=== PATIENT | female | born 1985 | race Caucasian/White ===

== ENCOUNTER 2017-01-19 05:30 | Emergency (ER) | payer OTHER ==
[~2017-01-19] VITALS: Ht 165.1 cm; Wt 87.1 kg
[~2017-01-19 05:30] MED LIST: CINNAMON BARK500 MG PO; Diabeta,Micronase PO; ENDOCET 5-3251 EACH PO; Flintstones PO; HUMALOG100 UNIT/2 SC; HUMULIN N100 UNIT/2 SC; LANTUS 3 M100 UNITS1 SC; METFORMIN HCL1000 MG PO; Motrin PO; NOHOMEMEDS; NovoLIN N (NPH),Humu SC; PERCOCET 5/31 TABLET PO; Procardia XL,Adalat PO
[2017-01-19 06:11] LABS: HEMATOCRIT 41.4 % (36.0-46.0); MCH 31.2 PG (29.0-34.0); MCHC 35.7 G/DL (30.0-36.0); MCV 87.3 FL (83-99); MEAN PLAT.VOLUME 9.8 uM^3 (9.5-12.4); PLATELET COUNT 239 K/uL (156-360); RBC DIS.WIDTH-CV 11.9 % (11.8-14.6); RBC DIS.WIDTH-SD 38.4 % (39-53); RED BLOOD COUNT 4.74 M/uL (3.80-5.20); WHITE BLOOD COUNT 6.4 K/uL (4.1-10.2)
[2017-01-19 06:21] LABS: CHLORIDE 102 mEq/L (99-109); POTASSIUM 4.5 mEq/L (3.7-5.4); SODIUM 135 mEq/L (136-147)
[2017-01-19 06:22] LABS: GLUCOSE 369 mg/dL (70-99)
[2017-01-19 06:24] LABS: ANION GAP 12 MEQ/L (2-14)
[2017-01-19 06:26] LABS: GFR ESTIMATE (CALCULATED) > 59 mL/min/
[2017-01-19 06:27] LABS: UREA NITROGEN (BUN) 13 mg/dL (9-23)
[2017-01-19 06:35] LABS: QUANTITATIVE HCG < 4.0 MIU/ML
[2017-01-19 06:39] LABS: ADD MIUA? NO; BILIRUBIN NEGATIVE; BLOOD NEGATIVE; COLOR STRAW ((YELLOW)); GLUCOSE (STRIP) >=500; KETONES 20; LEUKOCYTES NEGATIVE; NITRITE NEGATIVE; PROTEIN (STRIP) NEGATIVE; SPECIFIC GRAVITY 1.036 (1.000-1.030); UCUL ADDED? NO; UROBILINOGEN 0.2 MG/DL (0.2-1.0)
[2017-01-19] MEDS ORDERED: INDOCIN50 MG PO (07:30)
[2017-01-19 07:38] VITALS: BP 97/67
== END 2017-01-19 07:46 | disposition home or self-care (01) ==
LOC: EME 05:30
PROVIDERS: Emergency Medicine
DX: R10.30 Lower abdominal pain, unspecified (principal); E11.9 Type 2 diabetes mellitus without complications; I10 Essential (primary) hypertension; Z79.4 Long term (current) use of insulin; Z79.84 Long term (current) use of oral hypoglycemic drugs
CPT/HCPCS: 80048; 81003; 84702; 85027; 99281; 99285; J7030

== ENCOUNTER 2017-04-16 06:23 | Emergency (ER) | payer OTHER ==
[~2017-04-16] VITALS: Ht 165.1 cm; Wt 90.0 kg
[~2017-04-16 06:23] MED LIST changes: +INDOCIN50 MG PO
[2017-04-16 07:22] LABS: HEMATOCRIT 42.2 % (36.0-46.0); MCH 31.1 PG (29.0-34.0); MCHC 35.1 G/DL (30.0-36.0); MCV 88.7 FL (83-99); PLATELET COUNT 197 K/uL (156-360); RBC DIS.WIDTH-CV 11.9 % (11.8-14.6); RBC DIS.WIDTH-SD 38.5 % (39-53); RED BLOOD COUNT 4.76 M/uL (3.80-5.20); WHITE BLOOD COUNT 5.7 K/uL (4.1-10.2)
[2017-04-16 07:41] LABS: ADD MIUA? YES; BILIRUBIN NEGATIVE; BLOOD LARGE; COLOR YELLOW ((YELLOW)); GLUCOSE (STRIP) >=500; KETONES 5; LEUKOCYTES NEGATIVE; NITRITE NEGATIVE; PROTEIN (STRIP) NEGATIVE; SPECIFIC GRAVITY 1.037 (1.000-1.030); UROBILINOGEN 0.2 MG/DL (0.2-1.0)
[2017-04-16 07:51] LABS: BACTERIA RARE /HPF; EPITHELIAL CELLS RARE /HPF; MUCUS TRACE /LPF; RED BLOOD CELLS 0-5 /HPF (0-5); WHITE BLOOD CELLS 0-5 /HPF (0-5)
[2017-04-16 08:02] LABS: QUANTITATIVE HCG 5626.4 MIU/ML
[2017-04-16 08:48] LABS: ANION GAP 13 MEQ/L (2-14); CHLORIDE 102 MEQ/L (99-109); POTASSIUM 4.3 MEQ/L (3.7-5.4); SAMPLE HEMOLYSIS CHECK 1; SAMPLE ICTERIC CHECK 0; SAMPLE LIPEMIA CHECK 0; SODIUM 138 MEQ/L (136-147)
[2017-04-16 08:53] LABS: GFR ESTIMATE (CALCULATED) > 59 mL/min/; GLUCOSE 319 mg/dL (70-99); UREA NITROGEN (BUN) 15 mg/dL (9-23)
[2017-04-16] MEDS ORDERED: MOTRIN800 MG PO (10:01)
[2017-04-16] MEDS ORDERED: NORCO 5/3251 TABLET PO (10:01)
[2017-04-16 10:11] VITALS: BP 102/68
== END 2017-04-16 10:12 | disposition home or self-care (01) ==
LOC: EME 06:23
PROVIDERS: Nurse Practitioner Family
DX: O03.9 Complete or unspecified spontaneous abortion without complication (principal); E11.65 Type 2 diabetes mellitus with hyperglycemia; Z3A.10 10 weeks gestation of pregnancy
CPT/HCPCS: 76801; 80048; 81003; 84702; 85027; 99281; 99284

== ENCOUNTER 2017-10-19 09:36 | Observation (INO) | payer OTHER ==
[~2017-10-19] VITALS: Ht 165.1 cm; Wt 89.4 kg
[~2017-10-19 09:36] MED LIST changes: +MOTRIN800 MG PO; +NORCO 5/3251 TABLET PO
[2017-10-19 12:35] LABS: HEMATOCRIT 39.8 % (36.0-46.0); HEMOGLOBIN 14.4 G/DL (11.9-15.5); MCH 31.2 PG (29.0-34.0); MCHC 36.2 G/DL (30.0-36.0); MCV 86.3 FL (83-99); PLATELET COUNT 208 K/uL (156-360); RBC DIS.WIDTH-CV 12.1 % (11.8-14.6); RBC DIS.WIDTH-SD 38.3 % (39-53); RED BLOOD COUNT 4.61 M/uL (3.80-5.20)
[2017-10-19 12:44] LABS: CHLORIDE 103 mEq/L (99-109); POTASSIUM 3.9 mEq/L (3.7-5.4); SODIUM 138 mEq/L (136-147)
[2017-10-19 12:45] LABS: GLUCOSE 262 mg/dL (70-99)
[2017-10-19 12:49] LABS: CREATININE 0.7 mg/dL (0.6-1.3); GFR ESTIMATE (CALCULATED) > 59 mL/min/
[2017-10-19 12:50] LABS: UREA NITROGEN (BUN) 16 mg/dL (9-23)
[2017-10-19 12:57] LABS: QUANTITATIVE HCG < 4.0 MIU/ML
[2017-10-19] MEDS ORDERED: METFORMIN HCL500 MG PO (16:46)
[2017-10-19 16:49] VITALS: BP 120/72
[2017-10-19] MEDS ORDERED: TRESIBA FL200 UNIT/1 SC (16:51)
[2017-10-19 20:15] VITALS: BP 100/49
[2017-10-19 23:50] VITALS: BP 101/60
[2017-10-20 07:56] VITALS: BP 93/57
[2017-10-20] MEDS ORDERED: HYDROCODON-ACE1 EAC7 PO (08:10)
[2017-10-20] MEDS ORDERED: KEFLEX500 MG PO (08:10)
[2017-10-20] MEDS ORDERED: ASPIRIN EC325 MG PO (08:10)
[2017-10-20 08:40] VITALS: BP 96/58
== END 2017-10-20 10:49 | disposition home or self-care (01) ==
LOC: EME 09:36 → EDOF 12:00 → ENRESERV 12:13 → 3EAST 16:21
PROVIDERS: Orthopaedic Surgery
PROC: 0JX Subcutaneous Tissue and Fascia, Transfer (ICD-10-PCS; principal; 2017-10-19)
PROC: 0PBT0ZZ Excision of Right Finger Phalanx, Open Approach (ICD-10-PCS; principal; 2017-10-19)
PROC: 3E0234Z Introduction of Serum, Toxoid and Vaccine into Muscle, Percutaneous Approach (ICD-10-PCS; 2017-10-19)
DX: S68.120A Partial traumatic metacarpophalangeal amputation of right index finger, initial encounter (principal); W31.89XA Contact with other specified machinery, initial encounter; Y93.9 Activity, unspecified; Y92.69 Other specified industrial and construction area as the place of occurrence of the external cause; Y99.0 Civilian activity done for income or pay; E11.9 Type 2 diabetes mellitus without complications; Z79.4 Long term (current) use of insulin; Z23 Encounter for immunization; I10 Essential (primary) hypertension
CPT/HCPCS: 73130; 80048; 82948; 84702; 85027; 99281; 99285; G0378; J0690; J3010